=== PATIENT | male | born 2000 | race Caucasian/White ===

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

== ENCOUNTER 2023-04-09 10:07 | Outpatient (REF) | payer BC, SELFPAY ==
[2023-04-09 17:27] LABS: TSH (W/Ref FT4) 0.88 uIU/mL (0.36-3.74)
[2023-04-12 08:57] LABS: IgA 127 mg/dL (85-499)
[2023-04-13 13:24] LABS: Helicobacter pylori Ag, Feces Negative (Negative)
[2023-04-13 15:27] LABS: Tissue Transglutaminase IgA <1.2 U/mL (<4.0)
== END 2023-04-09 10:08 | disposition home or self-care (01) ==
LOC: NCHCN 10:07
PROVIDERS: PCP Family Medicine; Visit Provider Family Medicine
DX: Z00.00 Encounter for general adult medical examination without abnormal findings (principal); K21.9 Gastro-esophageal reflux disease without esophagitis; R14.2 Eructation; R53.83 Other fatigue
CPT/HCPCS: 82784; 87338; 84443

== ENCOUNTER 2023-08-10 15:23 | Emergency (ER) | payer BC, SELFPAY ==
--- NOTE | 2023-08-10 15:15 | RT.EKG_ITS ---
APPROVED REPORT Exam: Resting ECG Reason for Exam: chest Pain Patient Location: E HR:98 bpm ECG Measurements Heart Rate 98 AXIS AL 145 P 162 QRSd 94 QRS 56 QT 334 T 9 QTc 427 Conclusion SINUS 98 NORMAL AXIS NO ACUTE CHANGES
[2023-08-10 15:24] VITALS: BP 128/75; PULSE 102; RESP 18; TEMP 37.8; O2SAT 100
[2023-08-10 15:41] VITALS: RESP 16
--- NOTE | 2023-08-10 15:45 | DI.RAD_ITS ---
Exam(s) XR CHEST 2V PA LATERAL EXAM: XR CHEST 2V PA LATERAL CLINICAL HISTORY: fatigue fever, cervical lymphadenopathy. TECHNIQUE: 2D digital imaging was performed. COMPARISON: CR CHEST 2 VIEWS PA,LAT from 11/07/2008 FINDINGS: 2 views: Heart size is normal. The mediastinum is not widened. Lungs are clear. No infiltrates nor pleural effusions. IMPRESSION: No acute pulmonary findings. DATA REPOSITORY: RADIATION DOSE DELIVERED:
--- NOTE | 2023-08-10 15:45 | DI.CT_ITS ---
Exam(s) CT NECK W EXAM: CT NECK W INDICATION: concern for right neck abscess v phleg v lymphad. COMPARISON: No exams were available for comparison TECHNIQUE: FINDINGS: VISUALIZED PARANASAL SINUSES: There is mild mucosal thickening in the floor of the left maxillary sin us. No associated fluid level. Right maxillary sinus clear. There is a small post inflammatory ret ention cysts in the left sphenoid sinus. Ethmoidal air cells are clear. Frontal sinuses are clear. Mastoid air cells are clear. NASOPHARYNX: Unremarkable ORODENTAL: Unremarkable. OROPHARYNX: Unremarkable. No masses evident. HYPOPHARYNX: Unremarkable. Valleculae and epiglottis and aryepiglottic folds appear normal. VOCAL CORDS: Unremarkable. No masses evident. Subglottic airway appears unremarkable. THYROID GLAND: Unremarkable. Normal size and no obvious nodules. SALIVARY GLANDS: Unremarkable. No significant findings in the parotid and submandibular glands. LYMPH NODES: There are multiple large lymph nodes in the right-side of the neck between the internal jugular vein and sternal much clawtoe mastoid muscle as well as posterior to the head internal jugula r vein. These enlarged lymph nodes exhibit relatively homogeneous density with no internal necrosis. No obvious abscess. There also enlarged lymph nodes on the opposite-left side of the neck similar location but slightly l ess than is evident on the right side. OTHER: Internal jugular veins are patent. VISUALIZED LUNG APICES: No significant findings. IMPRESSION: 1. There is a significant adenopathy in both sides the neck, slightly more so on the right side. Serrato spect this is related to some systemic process. RADIATION DOSE DELIVERED: Total DLP DATA REPOSITORY: All CT scans at this facility are submitted to the National Radiology Data Registry (NRDR) Dose Index Registry (DIR) with the [employer] ([employer]). RADIATION OPTIMIZATION: All CT scans at this facility use at least one of these dose optimization te chniques: automated exposure control; mA and/or kV adjustment per patient size (includes targeted exa ms where dose is matched to clinical indication); or iterative reconstruction.
--- NOTE | 2023-08-10 16:02 | W.ED.GENAD ---
Discharge Plan Disposition Patient Disposition: Home Condition: Improving Discharge Details Chief Complaint: Chest Pain Clinical Impression: Mononucleosis, Lymphadenopathy Primary Care Provider: Hannah Redding ED Provider: Pradip Quiñonez Home Meds and New Rx's Prescriptions: No Action baclofen 10 mg tablet 10 mg PO DAILY Patient Comments: TAKE 1 TABLET BY MOUTH EVERY DAY pantoprazole 40 mg tablet,delayed release (DR/EC) 40 mg PO DAILY Patient Comments: TAKE 1 TABLET BY MOUTH EVERY DAY Discharge Instructions Instructions: Mononucleosis (ED), Lymphadenopathy (ED) Additional Instructions: Please continue with ibuprofen and acetaminophen and fluids at home. Please do not engage in physical activity that could injure your chest or abdomen as you are at risk for splenic injury. Please return to the emergency department for any worsening symptoms Medical Decision Making 22-year-old male presents with right neck swelling and discomfort, chest discomfort cough nonproductive fatigue hot and cold sensitivity over the last several days, try to express a small pimple on the right side of his neck has had progressive swelling since then, notable small mobile cervical lymphadenopathy right posterior lateral neck, central scab with large amount of induration no appreciable fluctuance or crepitus, speaking full sentences tolerating secretions, noted to be febrile and tachycardic although nontoxic. Cough nonproductive with discomfort in chest when coughing and breathing. EKG normal sinus rhythm nonischemic. No history of thromboembolic disease or coronary artery disease. Consider viral respiratory illness with resultant lymphadenopathy and pleurisy versus developing neck soft tissue phlegmon versus abscess, given tachycardia and fever in the setting of systemic symptoms will obtain basic labs blood cultures, chest x-ray, COVID flu RSV swab, fluids analgesia imaging of neck to assess for deep space infection. 18: 36 patient resting comfortably no acute distress. Hutchinson positive. No evidence of deep space infection of neck. Likely reactive lymphadenopathy. Home care instructions and return precautions given. Discomfort in subcostal region when breathing likely related to enlarged spleen. Given splenic precautions. HPI General Date/Time Provider Initiated Documentation: 08/10/23 15:33. HPI Narrative: 22-year-old male denies past medical history presents with swollen right neck and lower chest discomfort associate with cough fatigue and low-grade fever. Traveled to [place] earlier this month. No foreign travel. Denies unintentional weight loss or night sweats. Nonproductive cough. No history of coronary disease or thromboembolic disease. Patient had a small pimple in the right side of his neck that he tried to express, since then has noticed progressive swelling to the right side of his neck as well as tender lymph nodes. Related Data Home Medications Medication Instructions Recorded Confirmed baclofen 10 mg tablet 10 mg PO DAILY 08/10/23 08/10/23 pantoprazole 40 mg tablet,delayed 40 mg PO DAILY 08/10/23 08/10/23 release Allergies Allergy/AdvReac Type Severity Reaction Status Date / Time Sulfa (Sulfonamide AdvReac Intermediate Skin Rash Unverified 08/10/23 15:40 Antibiotics) General Stated Complaint: Chest Pain FADIA: 3 Review of Systems Narrative: Review of Systems Constitutional: Fever, fatigue Eyes: negative ENT: negative Cardiovascular: negative Respiratory: Cough, chest pain Gastrointestinal: negative : negative Musculoskeletal: negative Skin: Swelling Neurologic: negative Psych: negative PFSH All Active Problems (Updated 08/10/23 @ 18:38 by Pradip Quiñonez MD) Lymphadenopathy (Acute) Mononucleosis (Acute) Social History Smoking/Tobacco Use Status: Current every day Tobacco Type: e-cigarettes Smoking risk assessment performed?: Yes Alcohol Intake: current Alcohol Intake frequency: holidays/special occasions only Drug use: Daily Substance use type: marijuana Housing: house Do you feel safe in your relationship?: Yes Exam Narrative Exam Narrative: Physical Examination General: alert, awake, cooperative, resting comfortably, no acute distress HEENT: normocephalic, atraumatic; PERRL, EOM intact, conjunctiva normal; no nasal discharge; moist mucous membranes, oral and pharyngeal mucosa normal, tolerating secretions Neck: supple, trachea midline; full ROM; large area of induration to right lateral neck with central scab, no definitive fluctuance, multiple mobile small cervical chain lymph nodes; no crepitus no erythema Chest: normal to inspection Respiratory: normal respiratory effort, speaking in full sentences, clear to auscultation, no wheezing, rales or rhonchi Cardiac: regular rate, regular rhythm, S1S2 intact, no murmurs rubs or gallops GI: abdomen soft, non-tender, non-distended; no palpable mass or hepatosplenomegaly Skin: See neck Neuro: AAOx3, normal speech, moving all extremities Psych: Appropriate mood and affect Course Vital Signs Vital signs: Vital Signs Temperature 37.8 C H 08/10/23 15:24 Pulse 102 H 08/10/23 15:24 Respiratory Rate 18 08/10/23 15:24 Blood Pressure 128/75 08/10/23 15:24 Pulse Oximetry 100 08/10/23 15:24 Temperature 37.8 C H 08/10/23 15:24 Temperature Source Temporal Artery Scan 08/10/23 15:24 Pulse 102 H 08/10/23 15:24 Respiratory Rate 16 08/10/23 15:41 Respiratory Effort Normal 08/10/23 15:41 Respiratory Depth Normal 08/10/23 15:41 Respiratory Pattern Normal 08/10/23 15:41 Blood Pressure 128/75 08/10/23 15:24 Blood Pressure Position Sitting 08/10/23 15:24 Pulse Oximetry 100 08/10/23 15:24 Oxygen Delivery Method Room Air 08/10/23 15:24 Oxygen Flow Rate 0 08/10/23 15:24 Pain Level 0 08/10/23 15:24 Lab/Test Results Lab/Test Results: 08/10/23 15:51 Blood Blood Culture - Pending 08/10/23 15:51 Blood Blood Culture - Pending PAWSS Have you Been Recently Intoxicated or Drunk Within the Last 30 days?: No Have you Ever Experienced Previous Episodes of Alcohol Withdrawal?: No Have you ever Experienced Withdrawal Seizures?: No Have you ever Experienced Delirium Tremens(DT)s?: No Have you ever undergone Alcohol Rehabilitation Treatment (i.e, inpt ot outpatient treatment programs)?: No Have you ever Experienced Blackouts?: No Have you ever Combined Alcohol with other Downers within the last 90 days?: No Have you ever Combined Alcohol with any other Substance of Abuse during the last 90 days?: No Result: 0
[2023-08-10 16:12] LABS: Abs Immature Grans 0.03 10^3/uL (0.0-0.06); HCT 42.8 % (40.0-50.0); HGB 15.3 g/dL (13.5-17.5); MCH 31.2 pg (27.0-33.0); MCHC 35.7 % (32.0-36.0); MCV 87 fL (80-95); MPV 10.6 fL (8.0-11.0); Platelet Count 150 10^3/uL (130-400); RDW 11.4 % (11.8-14.1); RDW-SD 36.8 fL; WBC 9.21 10^3/uL (4.4-10.8)
[2023-08-10] MEDS: Ketorolac 15 MG/ML VIAL IVP (16:18)
[2023-08-10] MEDS: Normal Saline 1,000 ML 1000 ML IV (16:18)
[2023-08-10] MEDS: Omnipaque 350 MG/ML 100 ML BTL IJ (16:25)
[2023-08-10] MEDS: Normal Saline - Diluent 50 ML VIAL IJ (16:27)
[2023-08-10 16:33] LABS: ALT 107 U/L (16-63); AST 82 U/L (15-37); Albumin 4.1 g/dL (3.4-5.0); Alkaline Phosphatase 133 U/L (46-116); BUN 8 mg/dL (7-18); Bilirubin, Total 0.5 mg/dL (0.2-1.0); Calcium 9.3 mg/dL (8.5-10.1); Chloride 99 mmol/L (98-107); Estimated GFR 108.46 (mL/min/1.73m2); Glucose 112 mg/dL (74-106); Potassium 3.6 mmol/L (3.5-5.1); Sodium 138 mmol/L (136-145)
[2023-08-10 16:55] LABS: Absolute Eosinophil Count 0.09 10^3/uL (0.0-0.7); Absolute Lymphocyte Count 4.33 10^3/uL (1.2-3.4); Absolute Monocyte Count 0.64 10^3/uL (0.1-0.8); Absolute Neutrophil Count 4.14 10^3/uL (1.2-6.7); Atypical Lymphocytes % 12
[2023-08-10 16:56] LABS: Diff Comment Manual Differential; RBC Morphology Normal
[2023-08-10 17:49] LABS: Mono Screening POSITIVE (Negative)
[2023-08-10 18:40] VITALS: PULSE 92; TEMP 36.6; O2SAT 98
== END 2023-08-10 18:43 | disposition home or self-care (01) ==
PROVIDERS: Emergency Provider Emergency Medicine; PCP Family Medicine
DX: B27.90 Infectious mononucleosis, unspecified without complication (principal); R59.1 Generalized enlarged lymph nodes; R05.1 Acute cough; R53.83 Other fatigue; R68.89 Other general symptoms and signs; F12.10 Cannabis abuse, uncomplicated; F17.290 Nicotine dependence, other tobacco product, uncomplicated
CPT/HCPCS: 70491; 80053; 87040; 93005; 96361; 96374; 99284; 71046; 85025; 86308; 93010; 99283; J1885; J3490

== ENCOUNTER 2025-05-21 17:23 | Outpatient (REF) | payer BC, SELFPAY ==
[2025-05-21 21:19] LABS: Hemoglobin A1C 4.7 % (<5.7)
[2025-05-21 21:32] LABS: ALT 21 U/L (16-63); AST 15 U/L (15-37); Albumin 4.4 g/dL (3.4-5.0); Alkaline Phosphatase 87 U/L (46-116); Bilirubin, Total 0.3 mg/dL (0.2-1.0); Calculated LDL 93 mg/dL (<100); Cholesterol 211 mg/dL (<200); HDL Cholesterol 94 mg/dL (>or=40); TSH (W/Ref FT4) 2.46 uIU/mL (0.36-3.74); Total Protein 7.5 g/dL (6.4-8.2); Triglyceride 124 mg/dL (<150)
[2025-05-21 21:42] LABS: Bilirubin, Direct 0.1 mg/dL (0.0-0.2)
== END 2025-05-21 17:24 | disposition home or self-care (01) ==
LOC: NCHCN 17:23
PROVIDERS: PCP Family Medicine; Visit Provider Family Medicine
DX: R79.89 Other specified abnormal findings of blood chemistry (principal); R63.5 Abnormal weight gain; E66.9 Obesity, unspecified
CPT/HCPCS: 80061; 80076; 83036; 84443